=== PATIENT | female | born 1965 | race Caucasian/White ===

== ENCOUNTER 2023-09-03 08:21 | Outpatient (CLI) | payer BC, SELFPAY ==
--- NOTE | 2023-09-03 10:49 | W.ANESCHARGE ---
Anesthesia Charges Start Date/Time Anesthesia Start Date: 09/03/23 Anesthesia Start Time: 10:17 Stop Date/Time Anesthesia Stop Date: 09/03/23 Anesthesia Stop Time: 10:45
== END 2023-09-03 08:22 | disposition home or self-care (01) ==
LOC: OP CLINIC 08:21
PROVIDERS: PCP Student in an Organized Health Care Education/Training Program; Visit Provider Internal Medicine Gastroenterology
DX: K63.5 Polyp of colon (principal); Z86.010 Personal history of colon polyps
CPT/HCPCS: 00811; 45380; 88305; J2704